=== PATIENT | female | born 1955 | race African-American/Black ===

== ENCOUNTER 2025-05-30 11:36 | Emergency (ER) | payer MEDICARE, MEDICAID ==
[~2025-05-30] VITALS: Ht 152.4 cm; Wt 77.0 kg
[~2025-05-30 11:36] MED LIST: AMLO5TAB88 PO; ARIP30TA59 PO; ASPI-1406 PO; BACL-141 PO; GABA-1180 PO; SERT-422 PO; TRAZ-251 PO
[2025-05-30 11:38] VITALS: O2SAT 99
[2025-05-30] MEDS: MORPHINE SULFATE 4 MG/ML INJ (FOR IV/IM USE) IM ONE (13:14)
[2025-05-30 15:58] LABS: BASOPHILS % 0.6 % (0.0-2.0); EOSINOPHILS % 1.1 % (0.0-5.0); HEMATOCRIT. 44.0 % (36.0-48.0); HEMOGLOBIN. 14.8 g/dL (12.0-16.0); LYMPHOCYTES % 20.3 % (20.0-50.0); MEAN PLATELET VOLUME 8.0 fl (7.4-10.4); MONOCYTES % 7.9 % (2.0-8.0); NEUTROPHILS % 70.1 % (40.0-76.0); PLATELET 304 x1000/uL (130-400); RED BLOOD CELL COUNT 5.05 mill/uL (4.2-5.4); RED CELL DISTRIBUTION WIDTH 14.0 % (11.6-14.6)
[2025-05-30 16:04] LABS: CREATININE 0.8 mg/dL (0.6-1.0); UREA NITROGEN BLOOD 6 mg/dL (9-23)
[2025-05-30 16:06] LABS: ASPARTATE AMINOTRANSFERASE 21 IU/L (<34); BILIRUBIN DIRECT 0.3 mg/dL (<=3.0); BILIRUBIN TOTAL 0.9 mg/dL (0.1-1.0); TROPONIN I HIGH SENSITIVITY 6 ng/L (3.0-34)
[2025-05-30 16:07] LABS: PROTEIN TOTAL 7.6 g/dL (6.0-8.3)
[2025-05-30] MEDS: POTASSIUM CHLORIDE 20MEQ TABLET SR PO ONE (17:08)
[2025-05-30 17:29] LABS: CLARITY URINE CLEAR (CLEAR); COLOR URINE YELLOW (YELLOW); GLUCOSE URINE NEGATIVE (NEGATIVE); KETONES URINE 1+ (NEGATIVE); LEUKOCYTE ESTERASE URINE 1+ (NEGATIVE); NITRITE URINE NEGATIVE (NEGATIVE); OCCULT BLOOD URINE NEGATIVE (NEGATIVE); PH URINE 7.5 (4.5-8.0); PROTEIN URINE 1+ (NEGATIVE); SPECIFIC GRAVITY URINE 1.013 (1.005-1.030); UROBILINOGEN URINE 2.0 E.U./dL (0.2-1.0)
[2025-05-30 17:47] LABS: BACTERIA URINE TRACE; RBC URINE NONE SEEN /hpf (0-2); SQUAMOUS EPITHELIAL CELL URINE FEW /lpf (RARE/1+)
[2025-05-30] MEDS ORDERED: CEFP200T14 MT (17:48)
[2025-05-30] MEDS ORDERED: IBUP-2029 MT (17:48)
[2025-05-30 18:08] LABS: TROPONIN I HIGH SENSITIVITY 5 ng/L (3.0-34)
[2025-05-30 18:48] VITALS: BP 117/79; PULSE 58; RESP 18; TEMP 37.1; O2SAT 100
== END 2025-05-30 19:58 | disposition home or self-care (01) ==
LOC: ER 11:36
DX: N28.89 Other specified disorders of kidney and ureter (principal); I10 Essential (primary) hypertension; F31.9 Bipolar disorder, unspecified; R06.02 Shortness of breath; Z88.0 Allergy status to penicillin; Z79.899 Other long term (current) drug therapy; Z90.49 Acquired absence of other specified parts of digestive tract; Z86.59 Personal history of other mental and behavioral disorders; Z79.82 Long term (current) use of aspirin
CPT/HCPCS: 99285; 74176; 80076; 80048; 81003; 83880; 83690; 85025; 84484; 36415; 93005; 96372; J2270

== ENCOUNTER 2025-09-17 12:12 | Emergency (ER) | payer MEDICARE, MEDICAID ==
[~2025-09-17] VITALS: Ht 167.6 cm; Wt 79.0 kg
[~2025-09-17 12:12] MED LIST changes: +CEFP200T14 MT; +IBUP-1455 MT
[2025-09-17 12:50] VITALS: O2SAT 98
[2025-09-17 14:42] LABS: CLARITY URINE CLEAR (CLEAR); COLOR URINE YELLOW (YELLOW); GLUCOSE URINE NEGATIVE (NEGATIVE); KETONES URINE NEGATIVE (NEGATIVE); LEUKOCYTE ESTERASE URINE NEGATIVE (NEGATIVE); NITRITE URINE NEGATIVE (NEGATIVE); OCCULT BLOOD URINE 1+ (NEGATIVE); PH URINE 6.0 (4.5-8.0); PROTEIN URINE TRACE (NEGATIVE); SPECIFIC GRAVITY URINE 1.013 (1.005-1.030); UROBILINOGEN URINE 1.0 E.U./dL (0.2-1.0)
[2025-09-17 14:56] LABS: SQUAMOUS EPITHELIAL CELL URINE 2+ /lpf (RARE/1+); WBC URINE 0-2 /hpf (0-2)
[2025-09-17 14:57] LABS: BACTERIA URINE TRACE; YEAST URINE NONE SEEN
[2025-09-17 15:30] LABS: BASOPHILS % 1.2 % (0.0-2.0); EOSINOPHILS % 4.4 % (0.0-5.0); HEMATOCRIT. 44.9 % (36.0-48.0); HEMOGLOBIN. 14.4 g/dL (12.0-16.0); LYMPHOCYTES % 26.2 % (20.0-50.0); MEAN PLATELET VOLUME 8.1 fl (7.4-10.4); MONOCYTES % 5.0 % (2.0-8.0); NEUTROPHILS % 63.2 % (40.0-76.0); PLATELET 339 x1000/uL (130-400); RED BLOOD CELL COUNT 5.08 mill/uL (4.2-5.4); RED CELL DISTRIBUTION WIDTH 14.3 % (11.6-14.6)
[2025-09-17 15:48] LABS: CREATININE 0.7 mg/dL (0.6-1.0)
[2025-09-17 15:49] LABS: UREA NITROGEN BLOOD 6 mg/dL (9-23)
[2025-09-17] MEDS: ONDANSETRON HCL 4MG/2ML INJ IV ONE (16:08)
[2025-09-17] MEDS: MORPHINE SULFATE 4 MG/ML INJ (FOR IV/IM USE) IV ONE (16:08)
[2025-09-17] MEDS: SODIUM CHLORIDE 0.9% 1,000 ML IV ONE (16:37)
[2025-09-17] MEDS ORDERED: TOPUD PO (18:59)
[2025-09-17] MEDS ORDERED: HYDR-4001 MT (18:59)
[2025-09-17 19:39] VITALS: BP 150/85; PULSE 65; RESP 14; TEMP 36.9; O2SAT 100
== END 2025-09-17 19:41 | disposition home or self-care (01) ==
LOC: ER 12:12
DX: N28.89 Other specified disorders of kidney and ureter (principal); R10.9 Unspecified abdominal pain; I10 Essential (primary) hypertension; Z79.82 Long term (current) use of aspirin; Z79.899 Other long term (current) drug therapy; Z88.0 Allergy status to penicillin; Z90.49 Acquired absence of other specified parts of digestive tract
CPT/HCPCS: 99285; 74176; 96374; 96361; 96375; 80048; 81003; 81025; 85025; 36415; J2405; J2270; J7030